=== PATIENT | male | born 1990 | race Caucasian/White ===

== ENCOUNTER 2024-01-27 18:47 | Emergency (ER) | payer OTHER, SELFPAY ==
[2024-01-27 18:58] VITALS: BP 146/72
--- NOTE | 2024-01-27 19:00 | ED.GENMED ---
ED Provider Triage
<Maggie Burgess, NET PROGRAMMER ANALYST - Last Filed: 01/27/24 19:04>
-
Patient seen by provider in Triage?: Seen in Triage
Attestation: A medical screening examination has been initiated by a qualified medical provider. Based on the assessment performed at this time, it has been determined that an emergent medical condition may exist and the patient has been informed
that further medical evaluation and possible additional diagnostic testing may be needed.
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 Little nausea, no vomiting.
GENERAL: Alert , in no apparent distress
EYE: No visual abnormalities.
ENT: No visible abnormalities.
LUNGS: No acute respiratory distress
NEUROLOGICAL: Alert and oriented
SKIN: Skin intact. No visible changes.
MUSCULOSKELETAL: Moving extremities normally
PSYCH: Normal and appropriate interaction.
This is a medical evaluation conducted in person to initiate diagnostic evaluation and provide initial therapeutics. Please see further documentation by the treating clinician.
History of Present Illness
<Maggie Burgess, NET PROGRAMMER ANALYST - Last Filed: 01/27/24 19:04>
General
Chief Complaint: Flank Pain
Time Seen by Provider: 01/27/24 22:01
<Artemio Joseph DO - Last Filed: 01/27/24 22:54>
General
Source: patient
Exam Limitations: none
Nursing documentation reviewed up to this point in time: agreed with
History of Present Illness
History of Present Illness:
33-year-old male left flank pain intermittent for greater than a years seen by urology previously noted to have a left midpole stone, he gets nausea fairly frequently pain worsened over the past day or so no fevers takes methadone and medical
marijuana
Past History
<Maggie Burgess, NET PROGRAMMER ANALYST - Last Filed: 01/27/24 19:04>
Past History
ED Past Medical History: None
ED Past Surgical History: None
Social History
Tobacco: Smoker
Drug: Former user and Narcotics
Personal: Single
Living: with family
Employment: Employed
<Artemio Joseph, DO - Last Filed: 01/27/24 22:54>
Social History
Alcohol: None
Review of Systems
<Artemio Joseph, DO - Last Filed: 01/27/24 22:54>
Review of Systems
All Other Systems: Not applicable
Constitutional: Denies fever
Phy Exam
<Artemio Joseph, DO - Last Filed: 01/27/24 22:54>
Physical Exam
Physical Exam:
Physical Exam
General: no apparent distress, not acutely ill
Neck: No jaundice
Heart: s1/s2 regular rate and rhythm, no murmur. equal radial pulses.
Lungs: no acute respiratory distress. clear bilaterally
Abdomen: Soft minimal left flank tenderness
Neuro: alert and oriented. no focal neurological deficits
Skin: no rash
Psychiatric: well kept. interactive and cooperative
Extremities: no edema.
Course
<Maggie Burgess, NET PROGRAMMER ANALYST - Last Filed: 01/27/24 19:04>
Orders/Labs/Results
Orders:
Orders
01/27/24 19:04
CT Abd/pel Without Iv Or Oral Urgent
Comment:
Reason For Exam: Left flank and abd pain
01/27/24 19:06
Complete Blood Count/With Diff Urgent
Comprehensive Metabolic Panel Urgent
Lipase Urgent
01/27/24 22:06
Urinalysis Reflex To Culture Urgent
Date Specimen was Collected: 01/27/24
Time Specimen was Collected: 22:00
Urine Microscopic Reflex Cult Urgent
01/27/24 22:46
Ibuprofen [Motrin] 600 mg PO NOW STA
Ondansetron Orally Disint [Zofran Odt (Orally Disintegrating)] 4 mg PO NOW STA
Abnormal Lab Results
01/27/24 01/27/24
19:06 22:06
WBC 12.4 H 10^3/uL
(4.8-10.8)
RBC 4.03 L 10^6/uL
(4.70-6.10)
Hgb 12.5 L g/dL
(13.0-18.0)
Hct 35.9 L %
(39.0-52.0)
Absolute Neuts (auto) 7.8 H 10^3/uL
(1.4-6.5)
Absolute Monos (auto) 1.3 H 10^3/uL
(0.1-0.6)
Monocytes % 10.2 H %
(1.7-9.3)
ALT 55 H U/L
(0-50)
Leukocyte Esterase Rfl Trace A
(Negative)
01/27/24 19:06
01/27/24 19:06
Vital Signs
Initial and Last Documented VS:
Initial Vital Signs
Pulse Resp BP Pulse Ox
72 22 146/72 98
01/27/24 18:58 01/27/24 18:58 01/27/24 18:58 01/27/24 18:58
Last Documented Vital Signs
Pulse Resp BP Pulse Ox
52 22 106/55 98
01/27/24 21:22 01/27/24 18:58 01/27/24 21:22 01/27/24 21:22
Tresalt;Artemio Joseph, DO - Last Filed: 01/27/24 22:54>
Orders/Labs/Results
Orders:
Orders
01/27/24 19:04
CT Abd/pel Without Iv Or Oral Urgent
Comment:
Reason For Exam: Left flank and abd pain
01/27/24 19:06
Complete Blood Count/With Diff Urgent
Comprehensive Metabolic Panel Urgent
Lipase Urgent
01/27/24 22:06
Urinalysis Reflex To Culture Urgent
Date Specimen was Collected: 01/27/24
Time Specimen was Collected: 22:00
Urine Microscopic Reflex Cult Urgent
01/27/24 22:46
Ibuprofen [Motrin] 600 mg PO NOW STA
Ondansetron Orally Disint [Zofran Odt (Orally Disintegrating)] 4 mg PO NOW STA
Abnormal Lab Results
01/27/24 01/27/24
19:06 22:06
WBC 12.4 H 10^3/uL
(4.8-10.8)
RBC 4.03 L 10^6/uL
(4.70-6.10)
Hgb 12.5 L g/dL
(13.0-18.0)
Hct 35.9 L %
(39.0-52.0)
Absolute Neuts (auto) 7.8 H 10^3/uL
(1.4-6.5)
Absolute Monos (auto) 1.3 H 10^3/uL
(0.1-0.6)
Monocytes % 10.2 H %
(1.7-9.3)
ALT 55 H U/L
(0-50)
Leukocyte Esterase Rfl Trace A
(Negative)
01/27/24 19:06
01/27/24 19:06
Vital Signs
Initial and Last Documented VS:
Initial Vital Signs
Pulse Resp BP Pulse Ox
72 22 146/72 98
01/27/24 18:58 01/27/24 18:58 01/27/24 18:58 01/27/24 18:58
Last Documented Vital Signs
Pulse Resp BP Pulse Ox
52 22 106/55 98
01/27/24 21:22 01/27/24 18:58 01/27/24 21:22 01/27/24 21:22
<Artemio Joseph, - Last Filed: 01/27/24 22:54>
MDM/Problems Addressed
Differential Diagnosis Includes:
Kidney stone ureteral stone UTI strain strain
MDM/Problems Addressed:
Flank pain
Chronic conditions affecting care:
Chronic stone chronic pain
Acute Exacerbation and/or Progression of Chronic Illness:
Chronic stone chronic pain
<Artemio Joseph DO - Last Filed: 01/27/24 22:54>
*Radiology
Radiology exam reviewed: radiology read reviewed
*Pulse Oximetry
Patient hypoxic: no
*Critical Care Note
Total Time (30-74mins, 75-104mins- exclusive of procedures): Not Applicable
Data Reviewed
Review of Other/Old Records Reveals: Radiology Studies
Source: patient
Prescriptions/Medications Considered But Not Given:
Morphine
Further Testing Considered But Not Given:
Ultrasound
<Artemio Joseph DO - Last Filed: 01/27/24 22:54>
Update Note
Update Note:
Update labs noted CAT scan noted prior ultrasound noted patient has certainly subacute symptoms flank pain nausea for close to a year, tells me has not seen urology for over a year, is afebrile here nontoxic, did briefly review with urology if he is
afebrile they can see him in the office the plan and operative course otherwise he would have to be admitted for an urgent stent
ED Attending Note
<Maggie Burgess NET PROGRAMMER ANALYST - Last Filed: 01/27/24 19:04>
-
Portions of this chart may have been created with voice recognition software.� Occasional wrong word or��sound alike� substitutions may have occurred due to the inherent limitations of voice recognition software.
Discharge Plan
Departure
Patient Disposition: Home (Routine Discharge)
Date of Disposition: 01/27/24
Time of Disposition: 22:53
Patient with high blood pressure during this ER visit?: No
Condition: Good
Discharge Problem:
Kidney calculi
Instructions: Kidney Stones (DC)
Prescriptions:
No Action
albuterol sulfate [Proventil HFA] 90 MCG/PUFF HFA aerosol inhaler
1 puff inhalation Q6HPRN PRN (Reason: shortness of breath) Qty: 1 0RF
azithromycin 250 MG tablet
250 mg PO Daily Qty: 6 0RF
Rx Instructions:
Day 1: 500 mg po x 1
Day 2-5: 250 mg po x 1
Referrals:
Dez Lamb MD [Family Provider] -
Wil Barraza MD [Active] - Next open appointment
Activity Restrictions/Additional Instructions:
Ibuprofen every 6 hours for pain Zofran every 6-8 hours for nausea vomiting follow-up with urology call tomorrow for appointment
Return to the ER if fever uncontrollable pain
Interventions
Interventions:
*Risk Screen - Suicide Last Done: 01/27/24 18:58
*Neglect/Abuse Screening Last Done: 01/27/24 18:58
Discharge Date and Time
Print Language: TAJIK
[2024-01-27 19:16] LABS: % Basophils 0.5 % (0-2); % Eosinophils 1.1 % (0-6); % Immature Granulocytes 0.2 % (0-0.5); % Lymphocytes 25.3 % (20.5-51.1); % Monocytes 10.2 % (1.7-9.3); % Neutrophils 62.7 % (42.2-75.2); Absolute Basophils 0.1 10^3/uL (0-0.2); Absolute Eosinophils 0.1 10^3/uL (0-0.7); Absolute Lymphocytes 3.1 10^3/uL (1.2-3.4); Absolute Monocytes 1.3 10^3/uL (0.1-0.6); Absolute Neutrophils 7.8 10^3/uL (1.4-6.5); Hematocrit 35.9 % (39.0-52.0); Hemoglobin 12.5 g/dL (13.0-18.0); Mean Corp Hgb Conc. 34.8 g/dL (33.0-37.0); Mean Corpuscular Volume 89.1 fL (80.0-94.0); Nucleated Red Blood Cells % 0 % (-); Platelet Count 225 10^3/uL (130-400); Red Blood Cell Count 4.03 10^6/uL (4.70-6.10); Red Cell Dist. Width 12.1 % (11.5-14.5); White Blood Cell Count 12.4 10^3/uL (4.8-10.8)
[2024-01-27 19:32] LABS: ALT (SGPT) 55 U/L (0-50); AST (SGOT) 26 U/L (17-59); Albumin 4.4 g/dl (3.5-5.0); Alkaline Phosphatase 96 U/L (38-126); Blood Urea Nitrogen 10 mg/dl (9-20); Calcium 9.3 mg/dl (8.4-10.2); Carbon Dioxide 28 mmol/L (22-30); Chloride 101 mmol/L (98-107); Glucose 99 mg/dl (70-99); Sodium 142 mmol/L (135-145); Total Bilirubin 0.3 mg/dl (0.2-1.3); Total Protein 7.3 g/dl (6.3-8.2); eGFR > 60.00
[2024-01-27 19:33] LABS: Lipase 28 U/L (23-300)
[2024-01-27 21:22] VITALS: BP 106/55
[2024-01-27 22:14] LABS: Urine Albumin Negative (Neg - Trace); Urine Bilirubin Negative (Negative); Urine Character Clear (Clear); Urine Color Yellow; Urine Glucose Negative (Negative); Urine Ketone Negative (Negative); Urine Leukocyte Trace (Negative); Urine Nitrite Negative (Negative); Urine Occult Blood Negative (Negative); Urine Specific Gravity 1.015 (<1.030); Urine Urobilinogen Negative (Neg - 1+)
[2024-01-27 22:38] LABS: Urine Red Blood Cell 0-2 /HPF (0-2)
== END 2024-01-27 23:26 | disposition home or self-care (01) ==
LOC: EMR 18:47
PROVIDERS: Registered Nurse; EMERGENCY PHYSICIAN Emergency Medicine; FAMILY PHYSICIAN Family Medicine
DX: N20.0 Calculus of kidney (principal); F17.200 Nicotine dependence, unspecified, uncomplicated; G89.29 Other chronic pain
CPT/HCPCS: 99284; 74176; 80053; 81003; 81015; 83690; 85025

== ENCOUNTER 2024-02-04 06:21 | Day surgery (SDC) | payer OTHER, SELFPAY ==
[2024-02-04] VITALS (14 sets, daily range): BP systolic 108–138; BP diastolic 56–98; BMI 28.1
--- NOTE | 2024-02-04 10:34 | PTCARENOTE ---
Patient has multiple scattered open wound areas to the BL arms which are scabbed. Different scattered areas, especially to the L arm, 2 cat scratch sites but are dime sized.
[2024-02-04] MEDS: Pyridium 200 MG PO (13:11)
== END 2024-02-04 14:56 | disposition home or self-care (01) ==
LOC: SDS 06:21
PROVIDERS: ATTENDING PHYSICIAN Specialist
DX: N20.1 Calculus of ureter (principal)
CPT/HCPCS: 52356; 74018; 76000; 82365; A4300; C2617